=== PATIENT | male | born 1935 | race Caucasian/White ===

== ENCOUNTER 2019-02-20 07:40 | Emergency (ER) | payer MEDICARE ==
[~2019-02-20] VITALS: Ht 175.3 cm; Wt 81.6 kg
[2019-02-20 07:40] VITALS: BP_SYST 133
[2019-02-20] MEDS ORDERED: NACL 0.9% 1,000 ML IV ONE (08:00)
[2019-02-20] MEDS ORDERED: CALC-1094 PO (08:12)
[2019-02-20] MEDS ORDERED: MULT-1089 PO (08:12)
[2019-02-20] MEDS ORDERED: HYDC2.5% TP (08:12)
[2019-02-20] MEDS ORDERED: FAMO-132 PO (08:12)
[2019-02-20] MEDS ORDERED: LIP40 PO (08:12)
[2019-02-20] MEDS ORDERED: METO25TA6 PO (08:12)
[2019-02-20] MEDS ORDERED: ASPI-1153 PO (08:12)
[2019-02-20] MEDS ORDERED: ACET-2634 PO (08:12)
[2019-02-20] MEDS ORDERED: TAMS0.4C96 PO (08:12)
[2019-02-20] MEDS ORDERED: CALC200T47 PO (08:12)
[2019-02-20] MEDS ORDERED: DOCU-144 PO (08:12)
[2019-02-20] MEDS ORDERED: HYDR-4272 PO (08:12)
[2019-02-20] MEDS ORDERED: CALC-808 PO (08:12)
[2019-02-20] MEDS ORDERED: FURO-150 PO (08:12)
[2019-02-20] MEDS ORDERED: VITA400C19 PO (08:12)
[2019-02-20] MEDS ORDERED: LIDOINT TP (08:12)
[2019-02-20] MEDS ORDERED: FINA5TAB3 PO (08:12)
[2019-02-20] MEDS ORDERED: VITD2000 PO (08:12)
[2019-02-20] MEDS ORDERED: ASCO500T20 PO (08:12)
[2019-02-20] MEDS ORDERED: ALEN10TA6 PO (08:12)
[2019-02-20 10:08] VITALS: BP_SYST 133
== END 2019-02-20 10:09 | disposition home or self-care (01) ==
LOC: SED 07:40
DX: S09.90XA Unspecified injury of head, initial encounter (principal); E78.00 Pure hypercholesterolemia, unspecified; K21.9 Gastro-esophageal reflux disease without esophagitis; I10 Essential (primary) hypertension; Z86.73 Personal history of transient ischemic attack (TIA), and cerebral infarction without residual deficits; Z86.79 Personal history of other diseases of the circulatory system; Z79.82 Long term (current) use of aspirin; Z79.899 Other long term (current) drug therapy; W19.XXXA Unspecified fall, initial encounter; Y93.89 Activity, other specified; Y92.89 Other specified places as the place of occurrence of the external cause; Y99.8 Other external cause status
CPT/HCPCS: 70450; 72125; 93005; 99284; J7030